=== PATIENT | female | born 2000 | race Caucasian/White ===

== ENCOUNTER → 2021-12-19 | Outpatient (CLI) | payer BC ==
[2021-12-19 09:39] LABS: Hemoglobin 9.8 g/dL (12.2-16.2); Nucleated Red Blood Cells % 0.1 %
[2021-12-19 09:40] LABS: Basophils # (auto) 0.1 10 ^3/uL (0-0.2); Basophils % (auto) 0.8 % (0.0-2.0); Eosinophils # (auto) 0.1 10 ^3/uL (0-0.8); Eosinophils % (auto) 0.8 % (0.0-7.0); Hematocrit 29.7 % (36.0-46.0); Lymphocytes # (auto) 2.2 10 ^3/uL (0.4-5.4); Lymphocytes % (auto) 15.9 % (10.0-50.0); Mean Corpuscular Hemoglobin 26.4 pg (28.0-32.0); Mean Corpuscular Hgb Conc. 32.9 g/dL (32.0-36.0); Mean Corpuscular Volume 80.2 fL (80.0-100.0); Monocytes # (auto) 0.7 10 ^3/uL (0-1.3); Monocytes % (auto) 5.1 % (0.0-12.0); Neutrophils # (auto) 10.6 10 ^3/uL (1.6-8.6); Neutrophils % (auto) 77.4 % (37.0-80.0); Red Cell Distribution Width 15.1 % (11.8-14.3); White Blood Cell 13.7 10^3/uL (4.4-10.8)
[2021-12-19 11:01] LABS: Alcohol, Urine < 3.0 mg/dL (0-10); Amphetamine Screen, Urine NEGATIVE (NEGATIVE); Barbiturate Scree,Urine NEGATIVE (NEGATIVE); Benzodiazephine Screen, Urine NEGATIVE (NEGATIVE); Cannabinoid Screen, Urine NEGATIVE (NEGATIVE); Cocaine Screen, Urine NEGATIVE (NEGATIVE); Opiate Scree,Urine NEGATIVE (NEGATIVE); Phencyclidine Screen, Urine NEGATIVE (NEGATIVE)
[2021-12-20 07:06] LABS: RPR Non Reactive (Non Reactive)
== END | disposition home or self-care (01) ==
LOC: LAB 09:22
PROVIDERS: ATTEND Obstetrics & Gynecology Obstetrics
DX: Z34.80 Encounter for supervision of other normal pregnancy, unspecified trimester (principal); Z3A.00 Weeks of gestation of pregnancy not specified
CPT/HCPCS: 36415; 80307; 82951; 85025; 86592; 87340

== ENCOUNTER 2022-01-08 13:13 | Observation (INO) | payer BC ==
[~2022-01-08] VITALS: Ht 172.7 cm; Wt 78.0 kg
== END 2022-01-08 16:33 | disposition home or self-care (01) ==
LOC: LDRP 14:09 → UNDOADMOB 14:09 → LDRP 15:00
PROVIDERS: ADMIT Obstetrics & Gynecology; ATTEND Obstetrics & Gynecology
DX: O24.419 Gestational diabetes mellitus in pregnancy, unspecified control (principal); O30.003 Twin pregnancy, unspecified number of placenta and unspecified number of amniotic sacs, third trimester; Z3A.33 33 weeks gestation of pregnancy; Z87.891 Personal history of nicotine dependence
CPT/HCPCS: 76818; 82962; G0378; 59025; 81002; 94760

== ENCOUNTER → 2022-01-19 | Outpatient (CLI) | payer BC ==
[~2022-01-19] MED LIST: PREN-96 PO
[2022-01-19 10:24] LABS: Basophils # (auto) 0 10 ^3/uL (0-0.2); Basophils % (auto) 0.3 % (0.0-2.0); Eosinophils # (auto) 0.1 10 ^3/uL (0-0.8); Eosinophils % (auto) 0.8 % (0.0-7.0); Hematocrit 31.4 % (36.0-46.0); Hemoglobin 10.7 g/dL (12.2-16.2); Lymphocytes # (auto) 2.1 10 ^3/uL (0.4-5.4); Lymphocytes % (auto) 18.2 % (10.0-50.0); Mean Corpuscular Hemoglobin 28.1 pg (28.0-32.0); Mean Corpuscular Hgb Conc. 34.1 g/dL (32.0-36.0); Mean Corpuscular Volume 82.4 fL (80.0-100.0); Monocytes # (auto) 0.6 10 ^3/uL (0-1.3); Monocytes % (auto) 5.3 % (0.0-12.0); Neutrophils # (auto) 8.8 10 ^3/uL (1.6-8.6); Neutrophils % (auto) 75.4 % (37.0-80.0); Red Blood Cells 3.81 10^6/uL (4.0-5.20); Red Cell Distribution Width 20.1 % (11.8-14.3); White Blood Cell 11.7 10^3/uL (4.4-10.8)
[2022-01-20 05:35] LABS: RPR Non Reactive (Non Reactive)
== END | disposition home or self-care (01) ==
LOC: LAB 10:01
PROVIDERS: ATTEND Obstetrics & Gynecology Obstetrics
DX: Z34.80 Encounter for supervision of other normal pregnancy, unspecified trimester (principal)
CPT/HCPCS: 36415; 85025; 86592

== ENCOUNTER 2022-01-21 08:11 | Observation (INO) | payer BC | END 2022-01-21 13:00 | disposition home or self-care (01) | LOC: UNDOADMOB 11:06 → LDRP 11:06 → UNDODISOB 13:00 | PROVIDERS: ADMIT Obstetrics & Gynecology; ATTEND Obstetrics & Gynecology | DX: O30.003 Twin pregnancy, unspecified number of placenta and unspecified number of amniotic sacs, third trimester (principal); O24.419 Gestational diabetes mellitus in pregnancy, unspecified control; Z3A.35 35 weeks gestation of pregnancy; Z79.899 Other long term (current) drug therapy; Z87.891 Personal history of nicotine dependence | CPT/HCPCS: 59025; 76818; 81002; 82948; 82962; 94760; G0378 ==

== ENCOUNTER 2022-01-28 09:00 | Observation (INO) | payer BC ==
[2022-01-28] MEDS ORDERED: FERR27TA2 PO (09:58)
== END 2022-01-28 10:28 | disposition home or self-care (01) ==
LOC: LDRP 09:00 → UNDOADMOB 09:00 → LDRP 09:03 → UNDODISOB 10:28
PROVIDERS: ADMIT Obstetrics & Gynecology; ATTEND Obstetrics & Gynecology
DX: O24.419 Gestational diabetes mellitus in pregnancy, unspecified control (principal); Z3A.36 36 weeks gestation of pregnancy
CPT/HCPCS: 59025; 76818; 81002; 82948; 82962; 94760; G0378

== ENCOUNTER 2022-02-04 08:00 | Observation (INO) | payer BC ==
[~2022-02-04 08:00] MED LIST changes: +FERR27TA2 PO
== END 2022-02-04 14:41 | disposition home or self-care (01) ==
LOC: LDRP 13:00
PROVIDERS: ADMIT Obstetrics & Gynecology; ATTEND Obstetrics & Gynecology
DX: O24.419 Gestational diabetes mellitus in pregnancy, unspecified control (principal); Z3A.37 37 weeks gestation of pregnancy; Z79.899 Other long term (current) drug therapy
CPT/HCPCS: 59025; 76818; 81002; 82948; 82962; 94760; G0378

== ENCOUNTER 2022-02-11 13:19 | Observation (INO) | payer BC ==
[~2022-02-11] VITALS: Ht 170.2 cm; Wt 81.6 kg
== END 2022-02-11 15:03 | disposition home or self-care (01) ==
LOC: UNDOADMOB 13:19 → LDRP 13:19
PROVIDERS: ADMIT Obstetrics & Gynecology; ATTEND Obstetrics & Gynecology
DX: O24.419 Gestational diabetes mellitus in pregnancy, unspecified control (principal); Z3A.38 38 weeks gestation of pregnancy; Z87.891 Personal history of nicotine dependence
CPT/HCPCS: 59025; 76818; 81002; 82948; 82962; 94760; G0378

== ENCOUNTER 2022-02-14 05:12 | Inpatient (IN) | payer BC ==
[2022-02-12 09:55] LABS: Basophils # (auto) 0 10 ^3/uL (0-0.2); Basophils % (auto) 0.4 % (0.0-2.0); Eosinophils # (auto) 0.1 10 ^3/uL (0-0.8); Eosinophils % (auto) 0.9 % (0.0-7.0); Hematocrit 34.3 % (36.0-46.0); Hemoglobin 11.2 g/dL (12.2-16.2); Lymphocytes % (auto) 19.1 % (10.0-50.0); Mean Corpuscular Hemoglobin 27.5 pg (28.0-32.0); Mean Corpuscular Hgb Conc. 32.7 g/dL (32.0-36.0); Mean Corpuscular Volume 84.3 fL (80.0-100.0); Monocytes # (auto) 0.7 10 ^3/uL (0-1.3); Monocytes % (auto) 6.3 % (0.0-12.0); Neutrophils # (auto) 7.7 10 ^3/uL (1.6-8.6); Neutrophils % (auto) 73.3 % (37.0-80.0); Nucleated Red Blood Cells % 0.1 %; Red Blood Cells 4.06 10^6/uL (4.0-5.20); White Blood Cell 10.4 10^3/uL (4.4-10.8)
[2022-02-12 10:10] LABS: Albumin 2.6 g/dL (3.4-5.0); Calcium 8.4 mg/dL (8.5-10.1); Potassium 3.8 mmol/L (3.5-5.1)
[2022-02-12 10:14] LABS: BUN/Creatinine Ratio 23.6; Bilirubin, Total 0.3 mg/dL (0.2-1.0); Total Protein 6.3 g/dL (6.4-8.2); Urine Bacteria NONE SEEN /hpf (None Seen); Urine Blood Negative /uL (Negative); Urine Mucus FEW (None Seen); Urine Specific Gravity 1.033 (1.001-1.035); Urine WBC 170 /hpf (0 - 5)
[2022-02-12 10:28] LABS: INR 0.89 (0.9-1.15); Partial Thromboplastin Time 25.9 sec (24.6-33.4)
[2022-02-12 11:05] LABS: Alcohol, Urine < 3.0 mg/dL (0-10); Amphetamine Screen, Urine NEGATIVE (NEGATIVE); Barbiturate Scree,Urine NEGATIVE (NEGATIVE); Benzodiazephine Screen, Urine NEGATIVE (NEGATIVE); Cannabinoid Screen, Urine NEGATIVE (NEGATIVE); Cocaine Screen, Urine NEGATIVE (NEGATIVE); Opiate Scree,Urine NEGATIVE (NEGATIVE); Phencyclidine Screen, Urine NEGATIVE (NEGATIVE)
[2022-02-13 08:06] LABS: RPR Non Reactive (Non Reactive)
[2022-02-14] VITALS (15 sets, daily range): BP systolic 89–111; BP diastolic 50–62
[~2022-02-14] VITALS: Ht 170.2 cm; Wt 82.1 kg
[2022-02-14] MEDS ORDERED: SODIUM CITR/CITRIC ACID ORAL SOLN 30 ML PO ONE (05:30)
[2022-02-14] MEDS ORDERED: ceFAZolin 2 GM in D5W 5% 100 ML IV ONE (05:30)
[2022-02-14] MEDS ORDERED: METOCLOPRAMIDE HCL 5MG/ml INJ 2ml VIAL IV ONE (05:30)
[2022-02-14] MEDS ORDERED: LACTATED RINGER'S 1,000 ML IV ONE (05:30)
[2022-02-14] MEDS: LACTATED RINGER'S 1,000 ML IV SCH ×2 (07:07→13:07)
[2022-02-14] MEDS ORDERED: MORPHINE SULF PF 5 MG/10 ML VIAL ONE (07:59)
[2022-02-14] MEDS ORDERED: fentaNYL CITRATE 100 MCG/2 ML VL ONE (07:59)
[2022-02-14] MEDS ORDERED: BUPIVACAINE/DEXTROSE MPF 0.75% 2 ML AMP IT ONE (08:00)
[2022-02-14] MEDS ORDERED: GLYCOPYRROLATE 0.2 MG/ML 1ML VIAL ONE (08:00)
[2022-02-14] MEDS ORDERED: PHENYLEPHRINE HCL 10 MG/ML VL ONE (08:00)
[2022-02-14] MEDS ORDERED: ONDANSETRON HCL 4 MG/2 ML VIAL ONE (08:00)
[2022-02-14] MEDS ORDERED: ePHEDrine SULFATE 50 MG/ML AMP ONE (08:00)
[2022-02-14] MEDS ORDERED: KETOROLAC TROMETH 30 MG/ML 1ML VIAL ONE (08:00)
[2022-02-14] MEDS ORDERED: oxyTOCIN 10 UNIT/ML 10ML VIAL ONE (08:00)
[2022-02-14] MEDS ORDERED: SUCCINYLCHOLINE CHLORIDE 20 MG/ML 10ML VIAL IV ONE (08:03)
[2022-02-14] MEDS ORDERED: KETOROLAC TROMETH 30 MG/ML 1ML VIAL IV PRN (09:30)
[2022-02-14] MEDS ORDERED: SIMETHICONE 80 MG CHEWABLE TABLET PO PRN (09:30)
[2022-02-14] MEDS ORDERED: ePHEDrine SULFATE 50 MG/ML AMP IV PRN (09:30)
[2022-02-14] MEDS ORDERED: GUM (CHEWING) 1 GUM CHEW CHEW ONE (09:30)
[2022-02-14] MEDS ORDERED: ONDANSETRON HCL 4 MG/2 ML VIAL IV PRN ×3 (09:30→09:45)
[2022-02-14] MEDS ORDERED: FAMOTIDINE (10MG/ML) 2ML VL IV ONE (09:38)
[2022-02-14] MEDS ORDERED: DexAMETHasone SOD PHOS 10MG/1ML VIAL INJ IV PRN (09:45)
[2022-02-14] MEDS ORDERED: ACCU-CHEK COMFORT CURVE STRIP VI ONE (09:45)
[2022-02-14] MEDS ORDERED: FAMOTIDINE (10MG/ML) 2ML VL IV PRN (09:45)
[2022-02-14] MEDS ORDERED: NALOXONE HCL 0.4 MG/ML VIAL IV PRN (09:45)
[2022-02-14] MEDS ORDERED: diphenhdrAMINE HCL 50 MG/1 ML VL IV PRN (09:45)
[2022-02-14] MEDS: KETOROLAC TROMETH 30 MG/ML 1ML VIAL IV PRN ×2 (12:29→21:50)
[2022-02-14] MEDS: DOCUSATE SOD 100 MG CAP PO SCH (21:49)
[2022-02-15] VITALS (13 sets, daily range): BP systolic 97–111; BP diastolic 53–70
[2022-02-15] MEDS ORDERED: HYDROcodone-ACET 5/325MG TAB PO PRN (06:00)
[2022-02-15] MEDS: IBUPROFEN 600 MG TAB PO SCH ×3 (06:00→18:14)
[2022-02-15 06:23] LABS: Basophils # (auto) 0 10 ^3/uL (0-0.2); Basophils % (auto) 0.4 % (0.0-2.0); Eosinophils # (auto) 0.1 10 ^3/uL (0-0.8); Eosinophils % (auto) 0.7 % (0.0-7.0); Hematocrit 25.9 % (36.0-46.0); Hemoglobin 8.6 g/dL (12.2-16.2); Lymphocytes # (auto) 2.4 10 ^3/uL (0.4-5.4); Mean Corpuscular Hemoglobin 28.1 pg (28.0-32.0); Mean Corpuscular Volume 85.1 fL (80.0-100.0); Monocytes # (auto) 0.8 10 ^3/uL (0-1.3); Monocytes % (auto) 8.2 % (0.0-12.0); Neutrophils # (auto) 6.7 10 ^3/uL (1.6-8.6); Neutrophils % (auto) 66.7 % (37.0-80.0); Red Blood Cells 3.05 10^6/uL (4.0-5.20)
[2022-02-15 06:25] LABS: Red Cell Distribution Width 20.6 % (11.8-14.3)
[2022-02-15] MEDS: HYDROcodone-ACET 5/325MG TAB PO PRN ×4 (07:27→22:15)
[2022-02-15] MEDS: FERROUS SULFATE 325mg EC TAB PO SCH ×2 (08:00→18:14)
[2022-02-15] MEDS: DOCUSATE SOD 100 MG CAP PO SCH (22:15)
[2022-02-16 03:00] VITALS: BP 112/68
[2022-02-16] MEDS: IBUPROFEN 600 MG TAB PO SCH ×2 (03:40→05:40)
[2022-02-16 07:25] VITALS: BP 109/75
[2022-02-16] MEDS ORDERED: IBU600T PO (08:06)
[2022-02-16] MEDS ORDERED: DOCU100C10 PO (08:06)
[2022-02-16] MEDS ORDERED: HYDR-4902 PO (08:06)
== END 2022-02-16 14:30 | disposition home or self-care (01) | DRG 787 ==
LOC: LDRP 05:12
PROVIDERS: ADMIT Obstetrics & Gynecology Obstetrics; ATTEND Obstetrics & Gynecology Obstetrics
PROC: 10D00Z1 Extraction of Products of Conception, Low, Open Approach (ICD-10-PCS; principal; 2022-02-14 08:09)
DX: O24.429 Gestational diabetes mellitus in childbirth, unspecified control (principal); D62 Acute posthemorrhagic anemia; O32.1XX0 Maternal care for breech presentation, not applicable or unspecified; Z37.0 Single live birth; Z3A.39 39 weeks gestation of pregnancy; Z20.822 Contact with and (suspected) exposure to COVID-19; O99.02 Anemia complicating childbirth
CPT/HCPCS: 36415; 59025; 76805; 80053; 80307; 81001; 81002; 82962; 85025; 85610; 85730; 86592; 86850; 86900; 86901; 94760; 94762; 96360; 96361; 96366; G0378; J0330; J0690; J1885; J2405; J2590; J3490; J7060